=== PATIENT | male | born 1985 | race Caucasian/White ===

== ENCOUNTER 2023-12-08 07:18 | Emergency (ER) | payer OTHER, SELFPAY ==
[2023-12-08 07:20] VITALS: BP 169/96; BMI 33.2
--- NOTE | 2023-12-08 07:50 | ED.GENMED ---
History of Present Illness
General
Chief Complaint: Abdominal Pain
Source: patient
Exam Limitations: none
Time Seen by Provider: 12/08/23 07:23
Nursing documentation reviewed up to this point in time: agreed with
Travel History
Have you had any contact with someone who has COVID-19?: No
Do you have any symptoms of coronavirus? Fever > 100 degrees, chills, cough, shortness of breath, sore throat, loss of taste or smell, muscle aches, or headache?: No
History of Present Illness
History of Present Illness:
38-year-old male ADHD on Adderall occasional drinker of alcohol presents with left upper abdominal pain he had a few beers last night and cheese woke up today with pain in his left upper abdomen
No fever no chills no chest pain or shortness of breath has not had a bowel movement in a day no vomiting
He is status post appendectomy, pain does not go into his back jaw or arm
Past History
Past History
ED Past Medical History: HTN and Other (ADHD)
ED Past Surgical History: Appendectomy and Orthopedic (Left knee)
Social History
Tobacco: Smoker
Alcohol: Chronic alcoholic
Drug: None
Personal: Single
Living: with family
Employment: Employed
Family History
Family History: Other (kidney stones)
Review of Systems
Review of Systems
All Other Systems: Not applicable
Constitutional: Reports no symptoms
EENT: Reports no symptoms
Respiratory: Denies trouble breathing
ABD/GI: Reports abdominal pain; Denies nausea, diarrhea or black stools
: Reports no symptoms
Musculoskeletal: Reports no symptoms
Skin: Reports no symptoms
Neurological: Reports no symptoms
Phy Exam
Physical Exam
Physical Exam:
Physical Exam
General: no apparent distress, not acutely ill
Neck: No jaw
Heart: s1/s2 regular rate and rhythm, no murmur. equal radial pulses.
Lungs: no acute respiratory distress. clear bilaterally
Abdomen: Soft mild left upper abdominal tenderness no right-sided tenderness no lower abdominal tenderness
Neuro: alert and oriented. no focal neurological deficits
Skin: no rash
Psychiatric: well kept. interactive and cooperative
Extremities: no edema.
Course
Orders/Labs/Results
Orders:
Orders
12/08/23 07:27
Complete Blood Count/With Diff Urgent
Comprehensive Metabolic Panel Urgent
Lipase Urgent
12/08/23 07:42
Pantoprazole [Protonix IV] 80 mg IV NOW STA
12/08/23 07:43
Mag Hydrox/Al Hydrox/Simeth [Maalox] 30 ml PO NOW STA
12/08/23 07:52
Electrocardiogram (*1) Urgent
Reason for Study: Abdominal Pain
EKG- Treatment ONCE
Abnormal Lab Results
12/08/23
07:27
WBC 15.2 H 10^3/uL
(4.8-10.8)
MCH 32.9 H pg
(27.0-31.0)
Abs Immat Gran (auto) 0.1 H 10^3/uL
(0-0.05)
Absolute Neuts (auto) 11.3 H 10^3/uL
(1.4-6.5)
Absolute Monos (auto) 0.9 H 10^3/uL
(0.1-0.6)
Lymphocytes % 18.0 L %
(20.5-51.1)
Carbon Dioxide 21 L mmol/L
(22-30)
Glucose 111 H mg/dl
(70-99)
12/08/23 07:27
12/08/23 07:27
Vital Signs
Initial and Last Documented VS:
Initial Vital Signs
Temp Pulse Resp BP Pulse Ox
98.4 F 86 16 169/96 99
12/08/23 07:20 12/08/23 07:20 12/08/23 07:20 12/08/23 07:20 12/08/23 07:20
Last Documented Vital Signs
Temp Pulse Resp BP Pulse Ox
98.4 F 76 21 151/93 91
12/08/23 07:20 12/08/23 09:00 12/08/23 09:00 12/08/23 09:00 12/08/23 09:00
MDM/Problems Addressed
Differential Diagnosis Includes:
Gastritis pancreatitis nonspecific abdominal pain doubt bowel obstruction
MDM/Problems Addressed:
Abdominal pain
Chronic conditions affecting care:
ADHD alcoholism
Chronic conditions affecting care: Previous abdomnial surgery
Acute Exacerbation and/or Progression of Chronic Illness:
ADHD alcoholism
Acute Exacerbation and/or Progression of Chronic Illness: Previous abdomnial surgery
*Pulse Oximetry
Patient hypoxic: no
*EKG
Interpreted by ED Provider?: Yes
Interpretation: normal
Comparison EKG: no comparison EKG present
Heart Rate: 78
Rate: normal
Rhythm: sinus
Ischemia: non-specific ST changes
*Drill [employer] Numerical Control Interpretation
Rate: normal
Interpretation: normal
Heart Rate: 78
Rhythm: sinus
*Critical Care Note
Total Time (30-74mins, 75-104mins- exclusive of procedures): Not Applicable
Update Note
Update Note:
8:40 AM EKG noted labs noted white count is up LFTs and lipase are unremarkable
9:40 AM patient feeling better his abdomen is soft and nontender will give him some p.o. see how he does
Encouraged the patient to limit his alcohol intake
ED Attending Note
-
Portions of this chart may have been created with voice recognition software.� Occasional wrong word or��sound alike� substitutions may have occurred due to the inherent limitations of voice recognition software.
Discharge Plan
Departure
Patient Disposition: Home (Routine Discharge)
Date of Disposition: 12/08/23
Time of Disposition: 09:38
Patient with high blood pressure during this ER visit?: No
Condition: Good
Discharge Problem:
Abdominal pain
Instructions: Acid Reflux and GERD in Adults (DC), Abdominal Pain
Prescriptions:
New
pantoprazole [Protonix] 40 mg tablet,delayed release (DR/EC)
40 mg PO DAILY Qty: 60 0RF
alum-mag hydroxide-simeth [Maalox Advanced] 200-200-20 mg/5 mL suspension
10 ml PO QID PRN (Reason: indigestion) Qty: 3000 0RF
No Action
dextroamphetamine-amphetamine [Adderall] 30 MG tablet
30 mg PO DAILY
Patient Comments:
extended release per pt
dextroamphetamine-amphetamine [Adderall] 20 MG tablet
20 mg PO DAILY
Referrals:
Fred Torres DO [Family Provider] - Next open appointment
Activity Restrictions/Additional Instructions:
[place] diet avoid fatty and spicy foods
Limit your alcohol intake
Return to the ER if worsening symptoms
Interventions
Interventions:
*Risk Screen - Suicide Last Done: 12/08/23 07:20
*General Assessment Last Done: 12/08/23 07:20
*Neglect/Abuse Screening Last Done: 12/08/23 07:20
ED- Fall Risk Assessment Last Done: 12/08/23 07:27
*ED COVID-19 Vaccine History Last Done: 12/08/23 07:20
[2023-12-08 07:52] LABS: ALT (SGPT) 37 U/L (0-50); AST (SGOT) 36 U/L (17-59); Albumin 4.8 g/dl (3.5-5.0); Alkaline Phosphatase 119 U/L (38-126); Blood Urea Nitrogen 19 mg/dl (9-20); Calcium 9.7 mg/dl (8.4-10.2); Carbon Dioxide 21 mmol/L (22-30); Chloride 103 mmol/L (98-107); Estimated Creatinine Clearance > 125 ml/min; Glucose 111 mg/dl (70-99); Lipase 53 U/L (23-300); Sodium 136 mmol/L (135-145); Total Protein 7.5 g/dl (6.3-8.2); eGFR > 60.00
[2023-12-08 08:00] VITALS: BP 166/102
[2023-12-08] MEDS: PROTONIX IV 80 MG IV (08:04)
[2023-12-08] MEDS: MAALOX 30 ML PO (08:08)
[2023-12-08 08:29] LABS: % Basophils 0.7 % (0-2); % Eosinophils 0.5 % (0-6); % Immature Granulocytes 0.4 % (0-0.5); % Monocytes 6.2 % (1.7-9.3); % Neutrophils 74.2 % (42.2-75.2); Absolute Basophils 0.1 10^3/uL (0-0.2); Absolute Eosinophils 0.1 10^3/uL (0-0.7); Absolute Immature Granulocytes 0.1 10^3/uL (0-0.05); Absolute Lymphocytes 2.7 10^3/uL (1.2-3.4); Absolute Monocytes 0.9 10^3/uL (0.1-0.6); Absolute Neutrophils 11.3 10^3/uL (1.4-6.5); Hematocrit 43.7 % (39.0-52.0); Hemoglobin 15.9 g/dL (13.0-18.0); Mean Corp Hgb Conc. 36.4 g/dL (33.0-37.0); Mean Corpuscular Hgb 32.9 pg (27.0-31.0); Mean Corpuscular Volume 90.3 fL (80.0-94.0); Mean Platelet Volume 10.3 fL (7.4-10.4); Nucleated Red Blood Cells % 0 % (-); Platelet Count 377 10^3/uL (130-400); Red Blood Cell Count 4.84 10^6/uL (4.70-6.10); Red Cell Dist. Width 12.1 % (11.5-14.5); White Blood Cell Count 15.2 10^3/uL (4.8-10.8)
[2023-12-08 09:00] VITALS: BP 151/93
[2023-12-08 10:07] VITALS: BP 141/84
== END 2023-12-08 10:34 | disposition home or self-care (01) ==
LOC: EMR 07:18
PROVIDERS: EMERGENCY PHYSICIAN Emergency Medicine; FAMILY PHYSICIAN Family Medicine
DX: R10.9 Unspecified abdominal pain (principal); F17.200 Nicotine dependence, unspecified, uncomplicated; F10.20 Alcohol dependence, uncomplicated; F90.9 Attention-deficit hyperactivity disorder, unspecified type
CPT/HCPCS: 99284; 96374; 80053; 83690; 85025; 93005